=== PATIENT | male | born 1945 | race Caucasian/White ===

== ENCOUNTER 2017-02-26 06:35 | Inpatient (IN) | payer OTHER, BC ==
--- NOTE | 2017-02-26 06:54 | PDOC ---
*Physical Exam - Vital Signs Last Vital Signs Temp Pulse Resp BP Pulse Ox 97.7 F 78 18 153/92 100 02/26/17 06:44 02/26/17 06:44 02/26/17 06:44 02/26/17 06:44 02/26/17 06:44 - Physical Exam Comments: 02/26/17 06:53 Sign-out received from outgoing Emergency Physician Pt interviewed and examined He is complaining of a very subtle change in sensation in the right lower extremity that began yesterday at approximately 11 AM He states that he is only aware of them sensation when he attempts to ambulate Since that time, the symptoms have continued His states that his speech is "slower" than it usually is but is not slurred, hesitant or nonsensical He was in [place] last week and questions whether or not these symptoms could be secondary to dehydration, as he feels that he became dehydrated while there He states that he had mild diarrhea a few times a day for the past few days He denies recent illness, rash, tick exposure There is no objective weakness or sensory deficit in the extremities or face Given his NIH stroke scale of 0, and the fact that he is well outside the 3 and 4.5 hour windows for TPA, he is certainly not a candidate 02/26/17 07:20 EKG: Normal sinus rhythm at 60, left axis deviation, left anterior hemiblock, early R-wave progression, flat T-wave in aVL, no ST changes 02/26/17 07:51 02/26/17 08:11 Labs noted 02/26/17 08:35 CT reading noted It is unclear whether or not the lesion is acute and accounts for his symptoms or chronic I feel he will require MRI Clinical impression: Possible CVA Subjective right lower extremity weakness Will place on observation for further evaluation and treatment Case discussed in detail with admitting provider including history, physical exam and ancillary studies. Admitting physician has assumed care for the patient, will follow all pending diagnostics and will complete the evaluation and treatment. 02/26/17 08:50 ED Treatment Course - LABORATORY CBC & Chemistry Diagram: 02/26/17 07:05 02/26/17 07:05 *DC/Admit/Observation/Transfer Diagnosis at time of Disposition: Leg weakness, Cerebrovascular accident (CVA) - Discharge Dispostion Condition at time of disposition: Stable Admit: Yes - Referrals Referrals: Tanisha Pink MD [Primary Care Provider] -
[2017-02-26] MEDS ORDERED: SODIUM CHLORIDE 1,000 ML IV SCH (07:00)
--- NOTE | 2017-02-26 07:07 | PDOC ---
History of Present Illness - General Chief Complaint: CVA/TIA Stated Complaint: DIFFICULT WALKING AND DISORIENTED YESTERDAY Time Seen by Provider: 02/26/17 06:46 - History of Present Illness Initial Comments: 02/26/17 06:46 This 71-year-old man with no significant past medical history presents with approximately 24-hour history of because he is feeling the area right leg weakness followed by right arm weakness and difficulty speaking. Patient states that as he was shopping with his yesterday at approximately 11 AM, he had the sensation that he was having difficulty standing on his right leg. He had no pain but felt that the leg was weak. Within a few hours he had the same sensation in the right arm. He was able to drive his car (manual shift) subsequent to that but states that the sensations continue. Today, he has felt that his speech has been different because he cannot feel his upper lip normally. He denies word recall difficulty. Patient states that he is been having problems with fine motor functioning of his right arm (for example, signing his name on registration material here). Patient recently traveled by air from [place](arrived home here in Sunday). He has had no lower extremity edema or pain No chest pain/shortness of breath/diaphoresis. Patient has mild nausea today ; was able to eat normally yesterday without problems Patient was started on Lamisil recently for toe fungal infection Cardiac Risk factorsPositive for smoking(pipe), strong family history of cardiovascular/cerebrovascular illnesses; hyperlipidemia (on no medications) Past History - Past Medical History Allergies/Adverse Reactions: Allergies Allergy/AdvReac Type Severity Reaction Status Date / Time moxifloxacin HCl Allergy Intermediate Hives Verified 02/26/17 06:39 [From Avelox] Home Medications: Ambulatory Orders Cholecalciferol (Vitamin D3) [Vitamin D3] 2,000 unit PO DAILY 02/26/17 Omeprazole 20 mg PO DAILY 02/26/17 Terbinafine HCl [Terbinafine] 15 gm TP DAILY 02/26/17 Aspirin [ASA -] 325 mg PO DAILY #30 tablet 02/27/17 Atorvastatin Ca [Lipitor] 40 mg PO HS #30 tablet 02/27/17 Cane 1 each MC DAILY #1 each 02/27/17 Lisinopril [Prinivil] 5 mg PO DAILY #30 tablet 02/27/17 Anemia: No Asthma: No Cancer: Yes (PROSTATE) Cardiac Disorders: No CVA: No COPD: No CHF: No Dementia: No Diabetes: No GI Disorders: Yes (GERD) Disorders: Yes (PROSTATE CANCER) HTN: No Hypercholesterolemia: No Liver Disease: No Seizures: No Thyroid Disease: No - Surgical History Abdominal Surgery: No Appendectomy: No Cardiac Surgery: No Cholecystectomy: No Lung Surgery: No Neurologic Surgery: No Orthopedic Surgery: No (BILATERAL KNEE ARTHROSCOPIES AND LEFT SHOULDER ARTHROSCOPIC SURGERY) - Psycho/Social/Smoking Cessation Hx Anxiety: No Suicidal Ideation: No Smoking Status: Yes (PIPE TOBACCO) Smoking History: Current every day smoker Years of Tobacco Use: 40 Have you smoked in the past 12 months: Yes Number of Cigarettes Smoked Daily: 0 Hx Alcohol Use: Yes Drug/Substance Use Hx: No Substance Use Type: Alcohol Hx Substance Use Treatment: No Review of Systems - Review of Systems Able to Perform ROS?: Yes Comments:: 12 point review of systems is negative except for what is noted in the history of present illness *Physical Exam - Physical Exam Comments: GENERAL: Adult male, alert and oriented 3, speaking in a clear voice; speech is fluent HEAD: Normal with no signs of trauma. EYES: PERRLA, EOMI, sclera anicteric, conjunctiva clear. ENT: Ears normal, nares patent, oropharynx clear without exudates. Dry mucous membranes. NECK: Normal range of motion, supple without lymphadenopathy, JVD, or masses. LUNGS: Breath sounds equal, clear to auscultation bilaterally. No wheezes, and no crackles. HEART:Regular rate and rhythm, normal S1 and S2 without murmur, rub or gallop. ABDOMEN:.normal bowel sounds No guarding,tenderness or rebound.No masses No distention. EXTREMITIES: Normal range of motion, no edema. No clubbing or cyanosis. No erythema, or tenderness. NEUROLOGICAL: Cranial nerves II through XII grossly intact. Normal speech. No pronator drift; gross motor functioning 5/5 throughout no MUSCULOSKELETAL: Back non-tender to palpation, no CVA tenderness SKIN: Warm, Dry, normal turgor, no rashes or lesions noted. Critical Care Time/MDM Note - Medical Decision Making Note: 02/26/17 07:12 Case signed out to Dr Varma at end of shift. Discharge Disposition - Diagnosis Leg weakness, Cerebrovascular accident (CVA) - Discharge Dispostion Condition at time of disposition: Stable Last Admission D/C Date: 06/24/13 - Prescriptions
[2017-02-26 07:20] LABS: BASOPHIL 2.8 % (0-2.0); EOSINOPHIL 3.7 % (0-4.5); MCH 30.2 pg (25.7-33.7); MCHC 33.3 g/dl (32.0-35.9); MEAN CELL VOLUME 90.6 fl (80-96); MEAN PLT VOLUME 8.5 fl (7.5-11.1); NEUTROPHILS 61.9 % (42.8-82.8); PLATELET COUNT 291 K/MM3 (134-434); RDW 13.6 % (11.9-15.9); WHITE BLOOD COUNT 9.4 K/mm3 (4.0-10.8)
[2017-02-26 07:33] LABS: URINE APPEARANCE Clear; URINE BILIRUBIN Negative (NEGATIVE); URINE GLUCOSE (UA) Negative (NEGATIVE); URINE KETONE Negative (NEGATIVE); URINE LEUK ESTERASE Negative (NEGATIVE); URINE NITRITE Negative (NEGATIVE); URINE PROTEIN Negative (NEGATIVE); URINE UROBILINOGEN 0.2 E.U/dl (0.2-1.0)
[2017-02-26 07:35] LABS: URINE BLOOD TRACE (NEGATIVE); URINE COLOR YELLOW
[2017-02-26 07:36] LABS: URINE RBC 0-3 /hpf (0-3); URINE WBC 0-3 (3-5)
[2017-02-26 07:37] LABS: URINE BACTERIA FEW /hpf (NEGATIVE)
[2017-02-26 07:43] LABS: INR 1.09 (0.82-1.09); PROTHROMBIN TIME (PATIENT) 12.2 SEC (10.2-13.0)
[2017-02-26 07:55] LABS: ALBUMIN 3.9 g/dl (3.5-5.0); ALK PHOS 57 U/L (32-92); ANION GAP 4 (8-16); CALCIUM 8.7 mg/dl (8.4-10.2); CHOLESTEROL 193 mg/dl; CO2 23 mmol/L (22-28); CREATININE 1.2 mg/dl (0.6-1.3); GLUCOSE,RANDOM 133 mg/dl (74-106); SGOT/AST 18 U/L (10-42); SGPT/ALT 18 U/L (10-40); TOT PROT 6.5 g/dl (6.4-8.3)
[2017-02-26 07:56] LABS: CPK(DFH) 68 IU/L (38-174)
[2017-02-26 07:59] LABS: TROPONIN I (DFP) < 0.03 ng/ml (0.03-0.50)
[2017-02-26 08:32] LABS: LDL CHOLESTEROL (ONLY SJRH) 118 mg/dL (5-100)
--- NOTE | 2017-02-26 09:21 | HP ---
CHIEF COMPLAINT: right upper/lower extremity weakness PCP: Dr Pink HISTORY OF PRESENT ILLNESS: Patient is a 71 y/o male with a past medical history of GERD, prostate CA, and hyperlipidemia (diet controlled). Patient reports he was in his usual state of health and yesterday, 02/25/17, he developed right upper and lower extremity weakness on 1100. He reports noticing the symptoms upon ambulation. In addition, he reports slurred speech since yesterday. Patient attributed his symptoms to dehydration since he recently returned from [place], [place] on 02/23/17. He reports awakening today with the same weakness to the right upper and lower extremities. In addition, he noted worsening of slurring of speech and difficulty signing his name upon arrival to the emergency department. 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 Smoking: daily pipe smoker Alcohol: none Drugs: none Family History: Mother--, cva Father--, cva, cad Allergies moxifloxacin HCl [From Avelox] Allergy (Intermediate, Verified 02/26/17 06:39) Hives HOME MEDICATIONS: Home Medications Medication Instructions Recorded Cholecalciferol (Vitamin D3) 2,000 unit PO DAILY 02/26/17 [Vitamin D3] Omeprazole 20 mg PO DAILY 02/26/17 Terbinafine HCl [Terbinafine] 15 gm TP DAILY 02/26/17 REVIEW OF SYSTEMS CONSTITUTIONAL: Absent: fever, chills, diaphoresis, generalized weakness, malaise, loss of appetite, weight change HEENT: Absent: rhinorrhea, nasal congestion, throat pain, throat swelling, difficulty swallowing, mouth swelling, ear pain, eye pain, visual changes CARDIOVASCULAR: Absent: chest pain, syncope, palpitations, irregular heart rate, lightheadedness , peripheral edema RESPIRATORY: Absent: cough, shortness of breath, dyspnea with exertion, orthopnea, wheezing, stridor, hemoptysis GASTROINTESTINAL: Absent: abdominal pain, abdominal distension, nausea, vomiting, diarrhea, constipation, melena, hematochezia GENITOURINARY: Absent: dysuria, frequency, urgency, hesitancy, hematuria, flank pain, genital pain MUSCULOSKELETAL: Absent: myalgia, arthralgia, joint swelling, back pain, neck pain SKIN: Absent: rash, itching, pallor HEMATOLOGIC/IMMUNOLOGIC: Absent: easy bleeding, easy bruising, lymphadenopathy, frequent infections ENDOCRINE: Absent: unexplained weight gain, unexplained weight loss, heat intolerance, cold intolerance NEUROLOGIC: Present:focal weakness, slurred speech Absent: headache, paresthesias, dizziness, unsteady gait, seizure, mental status changes, bladder or bowel incontinence PSYCHIATRIC: Absent: anxiety, depression, suicidal or homicidal ideation, hallucinations. PHYSICAL EXAMINATION Vital Signs - 24 hr 02/26/17 02/26/17 02/26/17 06:44 06:54 07:20 Temperature 97.7 F Pulse Rate 78 78 Respiratory 18 Rate Blood Pressure 153/92 153/92 O2 Sat by Pulse 100 100 Oximetry (%) GENERAL: Awake, alert, and fully oriented, in no acute distress. HEAD: Normal with no signs of trauma. EYES: Pupils equal, round and reactive to light, extraocular movements intact, sclera anicteric, conjunctiva clear. No lid lag. EARS, NOSE, THROAT: Ears normal, nares patent, oropharynx clear without exudates. Moist mucous membranes. NECK: Normal range of motion, supple without lymphadenopathy, JVD, or masses. LUNGS: Breath sounds equal, clear to auscultation bilaterally. No wheezes, and no crackles. No accessory muscle use. HEART: Regular rate and rhythm, normal S1 and S2, 2/6 systolic murmur, rub or gallop. ABDOMEN: Soft, nontender, not distended, normoactive bowel sounds, no guarding, no rebound, no masses. No hepatomegaly or splenomegaly. MUSCULOSKELETAL: Normal range of motion at all joints. No bony deformities or tenderness. No CVA tenderness. UPPER EXTREMITIES: 2+ pulses, warm, well-perfused. No cyanosis. No clubbing. No peripheral edema. LOWER EXTREMITIES: 2+ pulses, warm, well-perfused. No calf tenderness. No peripheral edema. NEUROLOGICAL: Cranial nerves II-XII intact. Normal speech. upper extremities 4/ 5 lower extremities 4/5 PSYCHIATRIC: Cooperative. Good eye contact. Appropriate mood and affect. SKIN: Warm, dry, normal turgor, no rashes or lesions noted, normal capillary refill. Laboratory Results - last 24 hr 02/26/17 02/26/17 02/26/17 07:05 07:05 07:05 WBC 9.4 D RBC 5.41 Hgb 16.3 D Hct 49.0 MCV 90.6 MCHC 33.3 RDW 13.6 Plt Count 291 MPV 8.5 Neutrophils % 61.9 D Lymphocytes % 19.0 D Monocytes % 12.6 H Eosinophils % 3.7 Basophils % 2.8 H INR 1.09 Sodium 134 L Potassium 4.0 Chloride 107 Carbon Dioxide 23 Anion Gap 4 L BUN 17 Creatinine 1.2 Creat Clearance w eGFR > 60 Random Glucose 133 H D Calcium 8.7 Total Bilirubin 1.0 D AST 18 D ALT 18 D Alkaline Phosphatase 57 Creatine Kinase Troponin I Total Protein 6.5 Albumin 3.9 D Triglycerides 135 Cholesterol 193 Total LDL Cholesterol 118 H HDL Cholesterol 48 Urine Color Urine Appearance Urine pH Ur Specific [place] Urine Protein Urine Glucose (UA) Urine Ketones Urine Blood Urine Nitrite Urine Bilirubin Urine Urobilinogen Ur Leukocyte Esterase Urine RBC Urine WBC Ur Epithelial Cells Urine Bacteria Blood Type Antibody Screen 02/26/17 02/26/17 02/26/17 07:05 07:05 07:30 WBC RBC Hgb Hct MCV MCHC RDW Plt Count MPV Neutrophils % Lymphocytes % Monocytes % Eosinophils % Basophils % INR Sodium Potassium Chloride Carbon Dioxide Anion Gap BUN Creatinine Creat Clearance w eGFR Random Glucose Calcium Total Bilirubin AST ALT Alkaline Phosphatase Creatine Kinase 68 Troponin I < 0.03 L Total Protein Albumin Triglycerides Cholesterol Total LDL Cholesterol HDL Cholesterol Urine Color Yellow Urine Appearance Clear Urine pH 6.0 Ur Specific [place] 1.020 Urine Protein Negative Urine Glucose (UA) Negative Urine Ketones Negative Urine Blood Trace H Urine Nitrite Negative Urine Bilirubin Negative Urine Urobilinogen 0.2 e.u/dl Ur Leukocyte Esterase Negative Urine RBC 0-3 Urine WBC 0-3 Ur Epithelial Cells Few Urine Bacteria Few Blood Type O POSITIVE Antibody Screen Negative ASSESSMENT/PLAN: 1) neuro r/o acute ischemic cva - ct of brain reviewed, non hemmorhagic infarct of indeterminate age noted, MRI of brain ordered - pending echo and carotid doppler - continuous cardiac monitoring - pending speech and swallow eval - appreciate neuro input 2) card hyperlipidemia - diet controlled as per patient, pending lipid profile - systolic murmur noted on exam, pt does report a history of murmur in the past , pending echo - troponin x 1 wnl, pending 2nd and third 3) gi gerd - continue protonix substition for omeprazole F/E/N - low cholesterol diet - replete lytes prn ppx - lovenox - oob - scd - pt - protonix dispo: requires telemetry observation Visit type - Emergency Visit Emergency Visit: Yes ED Registration Date: 02/26/17 Care time: The patient presented to the Emergency Department on the above date and was hospitalized for further evaluation of their emergent condition. - New Patient This patient is new to me today: Yes Date on this admission: 02/26/17 - Critical Care Critical Care patient: Yes Total Critical Care Time (in minutes): 45 Critical Care Statement: The care of this patient involved high complexity decision making to prevent further life threatening deterioration of the patient 's condition and/or to evalute & treat vital organ system(s) failure or risk of failure.
[2017-02-26] MEDS ORDERED: TERBINAFINE HCL TP SCH (10:00)
[2017-02-26] MEDS: ASPIRIN 325 MG TABLET PO SCH (10:50)
[2017-02-26] MEDS: PANTOPRAZOLE 40 MG TABLET (FP) PO SCH (10:50)
[2017-02-26] MEDS ORDERED: ASPIRIN 325 MG TABLET ONE (10:51)
[2017-02-26] MEDS ORDERED: PANTOPRAZOLE 40 MG TABLET (FP) ONE (10:51)
[2017-02-26] MEDS ORDERED: LORAZEPAM CARPU-JECT 2 MG/ML DISP.SYRIN IVPUSH ONE (11:28)
[2017-02-26] MEDS ORDERED: LORAZEPAM CARPU-JECT 2 MG/ML DISP.SYRIN ONE (11:29)
[2017-02-26 13:32] VITALS: BMI 27.1
[2017-02-26 14:07] LABS: CPK(DFH) 73 IU/L (38-174)
--- NOTE | 2017-02-26 14:18 | CON.CARD ---
Cardiology Consult (text) - Consultation Consultation Note: CC: CVA 71 with h/o GERD, prostate CA p/w CVA. Noticed sx's of right leg weakness/difficulty standing on his right leg. After a few hours --> similar sensation in rt. arm. Then this morning abnormal sensation in upper lift that was affecting his speech. BPs elevated here, denies hx of HTN. States was recently seen by pcp and bp was within normal limits Noted to have acute/subacute CVA on MRI in addition to evidence of prior infarct. Given ASA 325 mg/day He has had no orthopnea, pnd, lower extremity edema, cp, sob, palps, dizziness , bleeding, claudication. Patient has mild nausea today, normal recent po intake. No f/c/s, cough, congestion, headache, diarrhea, abdominal pain. Pmhx/PShx: per hpi, BILATERAL KNEE ARTHROSCOPIES AND LEFT SHOULDER ARTHROSCOPIC SURGERY Social Hx; current pipe smoker, fam hx: CVA in parents ros: per hpi Ambulatory Orders Cholecalciferol (Vitamin D3) [Vitamin D3] 2,000 unit PO DAILY 02/26/17 Omeprazole 20 mg PO DAILY 02/26/17 Terbinafine HCl [Terbinafine] 15 gm TP DAILY 02/26/17 Current Medications Aspirin (Asa -) 325 mg PO DAILY [facility] Last Admin: 02/26/17 10:50 Dose: 325 mg Cholecalciferol (Vitamin D3 -) 2,000 unit PO DAILY [facility] Enoxaparin Sodium (Lovenox -) 40 mg SQ DAILY [facility] Sodium Chloride (Normal Saline -) 1,000 mls @ 42 mls/hr IV ASDIR [facility] Last Admin: 02/26/17 07:20 Dose: 42 mls/hr Non-Formulary Medication (Terbinafine Hcl [Terbinafine]) 15 gm TP DAILY [facility] Pantoprazole Sodium (Protonix -) 40 mg PO DAILY [facility] Last Admin: 02/26/17 10:50 Dose: 40 mg Vital Signs - 24 hr 02/26/17 02/26/17 02/26/17 06:44 06:54 07:20 Temperature 97.7 F Pulse Rate 78 78 Pulse Rate [ Right Radial] Respiratory 18 Rate Blood Pressure 153/92 153/92 Blood Pressure [Left Arm] O2 Sat by Pulse 100 100 Oximetry (%) 02/26/17 02/26/17 09:21 13:09 Temperature 98.6 F Pulse Rate 57 L Pulse Rate [ 58 L Right Radial] Respiratory 17 18 Rate Blood Pressure 148/83 Blood Pressure 163/67 [Left Arm] O2 Sat by Pulse 98 98 Oximetry (%) Intake & Output 02/24/17 02/25/17 02/26/17 02/27/17 07:59 07:59 07:59 07:59 Weight 200 lb 189 lb 9 oz nad, calm jvd flat, neck supple ctab, nl effort rrr nl s1, s2 no mrg + bs soft nt nd ext without e/c/c + dp/pt aaox3 no carotid bruits no jaundice, diaphoresis. CBC, BMP 02/26/17 07:05 02/26/17 07:05 Laboratory Tests 02/26/17 02/26/17 02/26/17 07:05 07:05 07:05 INR 1.09 Total Bilirubin 1.0 D AST 18 D ALT 18 D Alkaline Phosphatase 57 Creatine Kinase 68 Troponin I < 0.03 L Albumin 3.9 D Triglycerides 135 Cholesterol 193 Total LDL Cholesterol 118 H HDL Cholesterol 48 ekg: nsr, early r wave progresson. bline low voltages in limb leads. no acute ischemic changes. tele: nsr MRI brain: reviewed non-hemorrhagic acute/subacute stroke of left thalamus. 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 chronic ischemic changes in rt putamen/internal capsule. carotid u/s: mild plaque L> R, no stenosis. cxr clear 71 with h/o GERD, prostate CA p/w CVA. CVA: - ongoing mgm't per pmd, neuro consult - on ASA, would start statin. - echo ordered/pending. Telemetry monitoring. - bp control. HTN - no known diagnosis, but hypertensive here. - will start low dose ACEI Patient knows of [facility] pharmacy laboratory technician who he can follow up with as outpatient. Stable from CV perspective. If no events on telemetry and no significant abnormalities on echo, stable for d/c from CV perspective with close outpatient follow up.
[2017-02-26 14:58] LABS: TROPONIN I (DFP) < 0.03 ng/ml (0.03-0.50)
[2017-02-26] MEDS: LISINOPRIL 5 MG TABLET (FP) PO SCH (15:00)
[2017-02-26] MEDS: CHOLECALCIFEROL (VITAMIN D3) 1,000 UNIT TABLET (FP) PO SCH (16:45)
--- NOTE | 2017-02-26 16:46 | CON.NEURO ---
Consult Consult Specialty:: [facility] - History of Present Illness Chief Complaint: Right leg/arm weakness History of Present Illness: Patient is a 71 y/o male with a past medical history of GERD, prostate CA, and hyperlipidemia (diet controlled). Patient reports he was in his usual state of health and yesterday, 02/25/17, he developed first right lower extremity mild weakness on 1100 followed a few hours later by right arm weakness, also mild. He denies numbness in arm/leg but reports perioral numbness. He reports noticing the symptoms upon ambulation. In addition, he reports slurred speech since yesterday. Patient attributed his symptoms to dehydration since he recently returned from [place], [place] on 02/23/17. He reports awakening today with the same weakness to the right upper and lower extremities. In addition, he noted worsening of slurring of speech and difficulty signing his name upon arrival to the emergency department. Pt. now reports his speech is better ER course was notable for: (1) ct of brain nonhemorrhagic infarct of indeterminate age in the anterior limb of the right internal capsule 9mm x 4mm (2) EKG nsr left axis deviation - Past Surgical History Past Surgical History: Yes: None - Alcohol/Substance Use Hx Alcohol Use: Yes - Smoking History Smoking history: Current every day smoker Have you smoked in the past 12 months: Yes Aproximately how many cigarettes per day: 0 - Social History Usual Living Arrangement: With Spouse Home Medications - Allergies Allergies/Adverse Reactions: Allergies Allergy/AdvReac Type Severity Reaction Status Date / Time moxifloxacin HCl Allergy Intermediate Hives Verified 02/26/17 06:39 [From Avelox] - Home Medications Home Medications: Ambulatory Orders Cholecalciferol (Vitamin D3) [Vitamin D3] 2,000 unit PO DAILY 02/26/17 Omeprazole 20 mg PO DAILY 02/26/17 Terbinafine HCl [Terbinafine] 15 gm TP DAILY 02/26/17 Review of Systems - Review of Systems Neurological: reports: Weakness (left arm and leg) Physical Exam-Neuro Vital Signs: Vital Signs Temperature 98.6 F 02/26/17 13:09 Pulse Rate 57 L 02/26/17 13:09 Respiratory Rate 18 02/26/17 13:09 Blood Pressure 148/83 02/26/17 13:09 O2 Sat by Pulse Oximetry (%) 98 02/26/17 13:09 Labs: INR, PTT INR 1.09 (0.82-1.09) 02/26/17 07:05 - Neuro Exam Cranial Nerves II-XII Intact: Yes (+ bilateral slight diminished light touch+ slight right central facial) DTR's: 1+ Left Achilles, 1+ Right Achilles, 2+ Left Bicep, 2+ Right Bicep, 2+ Left Tricep, 2+ Right Tricep, 2+ Left Brachioradialis, 2+ Right Brachioradialis Babinski: Present (+bilateral up going toes) Motor Strength: 5/5: Left Arm, Right Arm, Left Leg, Right Leg (+ right pronator drift, + diminshed FFM right hand(subtle weakness) Gait: Other (Slight right ext.rotated foot.) NIH Stroke Scale - Total Score NIH Stroke Scale Score: 0 Imaging - Results MRI: Report Reviewed (Acute/subacute infarct in lat. aspect of left thalamus, old infarct in right thalamus(lacune), chronic right putamen ischemoc changes.) Problem List - Problems (1) Cerebrovascular accident (CVA) Code(s): I63.9 - CEREBRAL INFARCTION, UNSPECIFIED Qualifiers: CVA mechanism: thrombosis Precerebral and cerebral artery: other cerebral artery Qualified Code(s): I63.39 - Cerebral infarction due to thrombosis of other cerebral artery Assessment/Plan Pt. with risk factor of hyperlipidemia/family hx. of stroke(mother), not on antiplatelet therapy presenting with mild right sided weakness/left thalamic infarct. The weakness is likely due to edema in the adjacent internal capsule. Carotid study without critical stenosis. Suggest: 1) Would cont. ASA 325mg daily 2) Statin therapy, lipid profile. Cardiology consult noted. 3) Pt. will call my office for f/u, will obtain an MRA brain as outpatient. Thank you, Philip Plaza MD
--- NOTE | 2017-02-26 18:24 | CONSULT ---
Admitting History and Physical - Past Surgical History Past Surgical History: Yes: None - Smoking History Smoking history: Current every day smoker Have you smoked in the past 12 months: Yes Aproximately how many cigarettes per day: 0 - Alcohol/Substance Use Hx Alcohol Use: Yes History - Admission Reason For Visit: CVA - Hearing Hearing: Normal Hearing Aide: No With Patient: No Speech Evaluation - Communication Primary Language: CYMRO Communication: Yes: Within Normal Limits Oral Expression Ability: Yes: No Impairment - Speech Production Apraxia: No Able to Make Needs Known: Yes: WNL Intelligibility: Yes: WNL - Speech Characteristics Voice Loudness: Normal Voice Pitch: Yes: Normal Voice Phonatory-based Quality: Yes: Normal Nasal Resonance: Normal Articulation: Yes: Precise Rate of Speech: Intact - Language/Auditory Comprehension Follows: Yes: 1 Stage Simple Commands (WFL), 2 Stage Simple Commands (WFL), Complex Commands (WFL) Observation: Able to respond to yes/no queries: Yes, Yes/No Confusion: No, Comprehends Conversational Speech: Yes, Benefits from Slow Speech: No, Benefits from Repetiton: No, Benefits from Increased Volume of Speech: No - Language/Verbal Expression Able to Respond to Simple Queries: Yes: WNL Able to Communicate Wants and Needs: Yes: WNL Functional Communication Status: Yes: WNL Aware of Errors: Yes Attempts to Correct Errors: Yes Use of Gestures: No Written Expression: not examined although pt reports that hand writting is slightly off Oral Expression: Pt self reported slurred speech this am (now resolved). 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 Jaw Position: Open at Rest Against Resistance Opening: Normal Against Resistance Closing: Normal Pucker Lips: Normal Smile: Normal Lips, Comment: WFL for speech and swallow purposes. Lingual Movement: Normal Lingual Speed of Movement: Normal Lingual Movement Strgth Against Opposition: Normal Lingual Movement Characteristics: Normal Lingual Comment: WFL for speech and swallow purposes. Soft Palate Description: Normal Color, Normal Arch Hard Palate Description: Normal Color, Normal Arch Gag Reflex: Strong Bite Reflex: Present Velopharyngeal Movement: Normal Laryngeal Elevation: WFL Laryngeal Movement: Able to Palpate Needs Assistance: No Rate of Intake: WFL Bolus Size: WFL Labial Seal: WFL Chewing: WFL Oral Prep Time: WFL A-P Transit: WFL Pocketing: None Timing of Swallow: WFL Coughing/Throat Clear: Yes (Volitional, strong) Change in Voice: No Other Findings/Remarks: 71 yo male seen at bedside for swallow eval to r/o dysphagia. Pt is verbal, A& Ox3 cooperative. Admitted to [facility] for right side weakness of upper and lower extremities and slurred speech (possible TIA???). Speech and articulation has resolved now with good intelligibility. Pt's pmhx includes GERD and prostate CA. Voicing is WNL with good airway protection. Pt consumed a regular diet with thin liquids for dinner without assistance. No evidence of dysphagia and/or aspiration at this time. At bedside pt given po trials of thin liquids via cup and straw with no evidence of aspiration. Recommendations - Speech Evaluation, Impression/Plan Impression: Pt presents with no s/s of dysphagia and/or aspiration for purees, regular solids and thin liquids at this time. Pt speech has resolved with good intelligibility. No further intervention needed unless there is a change in medical status. Intermediate Goals: tolerate the least restrictive diet consistency without s/s of aspiration. Short Term Goals: tolerate regular solids and thin liquids with no s/s of aspiration. - Dysphagia Impressions/Plan Swallowing Skills: [facility] Dysphagia Impressions: No Impairment Dysphagia Evaluation Summary: 71 yo male presents with no signs of dysphagia and / or aspiration at this time. Continue regular solids and thin liquids at this time. Results given to hot metal charger and to pcp via chart. Recommendations: Neuro Consult (r/o TIA) - Recommendations Diet Consistency: Regular Medication Administration: Whole with water Liquids: Thin Liquids
[2017-02-26] MEDS ORDERED: ATORVASTATIN CA 40 MG TABLET (FP) PO SCH (22:00)
[2017-02-27 06:54] VITALS: BP 126/66; PULSE 63; TEMP 97.9
[2017-02-27 09:02] LABS: ALBUMIN 3.7 g/dl (3.5-5.0); ALK PHOS 53 U/L (32-92); ANION GAP 9 (8-16); BILIRUBIN,TOTAL 0.9 mg/dl (0.2-1.0); CALCIUM 8.7 mg/dl (8.4-10.2); CHOLESTEROL 186 mg/dl; CO2 23 mmol/L (22-28); GLUCOSE,RANDOM 99 mg/dl (74-106); PHOSPHOROUS 3.3 mg/dl (2.5-4.6); SGOT/AST 20 U/L (10-42); SGPT/ALT 16 U/L (10-40); TOT PROT 6.3 g/dl (6.4-8.3)
[2017-02-27 09:08] LABS: BASOPHIL 1.6 % (0-2.0); EOSINOPHIL 3.2 % (0-4.5); MCH 30.2 pg (25.7-33.7); MCHC 33.7 g/dl (32.0-35.9); MEAN CELL VOLUME 89.8 fl (80-96); NEUTROPHILS 62.3 % (42.8-82.8); PLATELET COUNT 287 K/MM3 (134-434); WHITE BLOOD COUNT 8.4 K/mm3 (4.0-10.8)
[2017-02-27 09:24] LABS: INR 1.05 (0.82-1.09); PROTHROMBIN TIME (PATIENT) 11.7 SEC (10.2-13.0)
[2017-02-27] MEDS ORDERED: ENOXAPARIN NA (PORCINE) 40 MG/0.4 ML DISP.SYRIN SQ SCH (10:00)
[2017-02-27] MEDS: PANTOPRAZOLE 40 MG TABLET (FP) PO SCH (10:12)
[2017-02-27] MEDS: LISINOPRIL 5 MG TABLET (FP) PO SCH (10:12)
[2017-02-27] MEDS: CHOLECALCIFEROL (VITAMIN D3) 1,000 UNIT TABLET (FP) PO SCH (10:12)
[2017-02-27] MEDS: ASPIRIN 325 MG TABLET PO SCH (10:12)
--- NOTE | 2017-02-27 11:46 | DS ---
Physical Exam: SUBJECTIVE: Patient seen and examined OBJECTIVE: Vital Signs Period Temp Pulse Resp BP Sys/Estrella Pulse Ox Last 24 Hr 97.9 F-99.1 F 57-70 18-18 126-150/66-83 96-98 PHYSICAL EXAM GENERAL: The patient is awake, alert, and fully oriented, in no acute distress. HEAD: Normal with no signs of trauma. EYES: PERRL, extraocular movements intact, sclera anicteric, conjunctiva clear. ENT: Ears normal, nares patent, oropharynx clear without exudates, moist mucous membranes. NECK: Trachea midline, full range of motion, supple. LUNGS: Breath sounds equal, clear to auscultation bilaterally, no wheezes, no crackles, no accessory muscle use. HEART: Regular rate and rhythm, S1, S2 without murmur, rub or gallop. ABDOMEN: Soft, nontender, nondistended, normoactive bowel sounds, no guarding, no rebound, no hepatosplenomegaly, no masses. EXTREMITIES: 2+ pulses, warm, well-perfused, no edema. NEUROLOGICAL: Cranial nerves II through XII grossly intact. Normal speech, gait not observed. PSYCH: Normal mood, normal affect. SKIN: Warm, dry, normal turgor, no rashes or lesions noted. LABS Laboratory Results - last 24 hr 02/27/17 02/27/17 02/27/17 05:53 05:53 05:53 WBC 8.4 RBC 5.15 Hgb 15.6 Hct 46.2 MCV 89.8 MCHC 33.7 RDW 14.0 Plt Count 287 MPV 9.0 Neutrophils % 62.3 Lymphocytes % 22.6 Monocytes % 10.3 H Eosinophils % 3.2 Basophils % 1.6 INR 1.05 Sodium 137 Potassium 4.4 Chloride 105 Carbon Dioxide 23 Anion Gap 9 BUN 20 H Creatinine 1.0 Creat Clearance w eGFR > 60 Random Glucose 99 D Calcium 8.7 Phosphorus 3.3 Magnesium 2.0 Total Bilirubin 0.9 AST 20 ALT 16 Alkaline Phosphatase 53 Total Protein 6.3 L Albumin 3.7 Triglycerides 119 Cholesterol 186 Total LDL Cholesterol 118 HDL Cholesterol 44 HOSPITAL COURSE: Date of Admission:02/26/17 Date of Discharge: 02/27/17 Minutes to complete discharge: 45 Discharge Summary Reason For Visit: CVA Current Active Problems Cerebrovascular accident (CVA) (Acute) Leg weakness (Acute) Condition: Stable - Instructions Referrals: Tanisha Pink MD [Primary Care Provider] - - Home Medications Comprehensive Discharge Medication List: Ambulatory Orders Cholecalciferol (Vitamin D3) [Vitamin D3] 2,000 unit PO DAILY 02/26/17 Omeprazole 20 mg PO DAILY 02/26/17 Terbinafine HCl [Terbinafine] 15 gm TP DAILY 02/26/17
[2017-02-27 12:07] LABS: THYROID STIMULATING HORMONE 2.97 uIU/ml (0.358-3.74)
--- NOTE | 2017-02-27 14:42 | EKG ---
Test Reason : Blood Pressure : / mmHG Vent. Rate : 060 BPM Atrial Rate : 060 BPM P-R Int : 152 ms QRS Dur : 084 ms QT Int : 428 ms P-R-T Axes : 060 -35 041 degrees QTc Int : 428 ms NORMAL SINUS RHYTHM POSSIBLE LEFT ATRIAL ENLARGEMENT LEFT AXIS DEVIATION WHEN COMPARED WITH ECG OF 26-FEB-2017 07:13, NO SIGNIFICANT CHANGE WAS FOUND Confirmed by MD CASANOVA MARJORY ([id number]) on 02/27/2017 2:41:50 PM Referred By: Confirmed By:DAHIANA CASANOVA MD
--- NOTE | 2017-02-27 14:44 | EKG ---
Test Reason : Blood Pressure : / mmHG Vent. Rate : 063 BPM Atrial Rate : 063 BPM P-R Int : 152 ms QRS Dur : 084 ms QT Int : 434 ms P-R-T Axes : 074 -30 056 degrees QTc Int : 444 ms NORMAL SINUS RHYTHM LEFT AXIS DEVIATION NO PREVIOUS ECGS AVAILABLE Confirmed by MD JOCELYNE, DAHIANA ([id number]) on 02/27/2017 2:44:03 PM Referred By: AMADOR JIMENEZ Confirmed By:DAHIANA CASANOVA MD
== END 2017-02-27 12:50 | disposition home or self-care (01) | DRG 65 ==
LOC: FER 06:35 → FM/S 10:09 → OBSVTOIN 13:24
PROVIDERS: ADMIT Internal Medicine; ATTEND Nurse Practitioner Family
DX: I63.39 Cerebral infarction due to thrombosis of other cerebral artery (principal); G81.94 Hemiplegia, unspecified affecting left nondominant side; R20.8 Other disturbances of skin sensation; R47.81 Slurred speech; E78.5 Hyperlipidemia, unspecified; F17.290 Nicotine dependence, other tobacco product, uncomplicated; R01.1 Cardiac murmur, unspecified; Z85.46 Personal history of malignant neoplasm of prostate
CPT/HCPCS: 36415; 70450-TC; 70551-TC; 71010-TC; 80053; 80061; 81003; 81015; 82465; 82550; 82607; 83718; 83721; 83735; 84100; 84443; 84478; 84484; 85025; 85610; 86850; 86900; 86901; 93005; 93306-TC; 93880-TC; 97116-GP; 97161-GP; 99283-25; G0378

== ENCOUNTER 2018-01-03 08:03 | Day surgery (SDC) | payer BC, OTHER ==
[2017-12-27 14:11] VITALS: BMI 27.0
[2018-01-03] MEDS ORDERED: PROPOFOL 20 ML ONE ×2 (08:09)
[2018-01-03 09:32] VITALS: TEMP 97.5
[2018-01-03 09:53] VITALS: BP 108/64; PULSE 64
--- NOTE | 2018-01-04 14:06 | PATH ---
Surgical Pathology Report Patient Name: MADELAINE THORNTON [facility]. Rec. #: [id number] /Age/Gender: 1945 (Age: 72) / M Account: [id number] Location: [facility]-ENDOSCOPY Taken: 01/03/2018 Received: 01/03/2018 Reported: 01/04/2018 Physicians: Venkat Bhatti M.D. Specimen(s) Received DISTAL SIGMOID Clinical History Family history of colonic polyps Postoperative diagnosis: Polyp Final Diagnosis DISTAL SIGMOID COLON, POLYP, BIOPSY: HYPERPLASTIC POLYP. Electronically Signed Annabella Middleton M.D. Gross Description Received in formalin, labeled "distal sigmoid" is a olguin, irregular portion of soft tissue measuring 0.2 cm. in greatest dimension. The specimen is submitted in toto in one cassette. /01/03/201801/03/2018
== END 2018-01-03 10:05 | disposition home or self-care (01) ==
LOC: FASU-ENDO 08:03
PROVIDERS: ATTEND Internal Medicine Gastroenterology
PROC: 0DBN8ZX Excision of Sigmoid Colon, Via Natural or Artificial Opening Endoscopic, Diagnostic (ICD-10-PCS; principal; 2018-01-03 08:56)
DX: Z12.11 Encounter for screening for malignant neoplasm of colon (principal); Z83.71 Family history of colonic polyps; K63.5 Polyp of colon; K57.30 Diverticulosis of large intestine without perforation or abscess without bleeding; K64.8 Other hemorrhoids
CPT/HCPCS: 88305-TC

== ENCOUNTER 2023-02-21 08:12 | Day surgery (SDC) | payer OTHER, BC ==
[2023-02-19 14:52] VITALS: BMI 26.9
[2023-02-21 10:15] VITALS: RESP 16; TEMP 98
[2023-02-21 10:18] VITALS: PULSE 64
[2023-02-21 10:19] VITALS: BP 130/71
== END 2023-02-21 10:12 | disposition home or self-care (01) ==
LOC: FASU-ENDO 08:12
PROVIDERS: ATTEND Internal Medicine Gastroenterology
PROC: 0DBN8ZX Excision of Sigmoid Colon, Via Natural or Artificial Opening Endoscopic, Diagnostic (ICD-10-PCS; principal; 2023-02-21 09:11)
DX: Z12.11 Encounter for screening for malignant neoplasm of colon (principal); Z86.010 Personal history of colon polyps; K63.5 Polyp of colon; K57.30 Diverticulosis of large intestine without perforation or abscess without bleeding
CPT/HCPCS: 88305-TC